=== PATIENT | male | born 1960 | race American Indian/Alaskan Native ===

== ENCOUNTER 2017-04-16 11:51 | Inpatient (IN) | payer OTHER ==
[2017-04-16 12:19] LABS: BASO % 0.9 % (0-2.0); EOS % 4.8 % (0-4.5); HEMOGLOBIN 13.3 GM/dL (11.7-16.9); LYMPH % 24.8 % (8-40); MCH 29.6 pg (25.7-33.7); MCHC 33.1 g/dl (32.0-35.9); MEAN CELL VOLUME 89.5 fl (80-96); MEAN PLT VOLUME 9.5 fl (7.5-11.1); NEUT % 62.5 % (42.8-82.8); PLATELET COUNT 178 K/MM3 (134-434); RBC 4.47 M/mm3 (4.00-5.60); RDW 13.4 % (11.9-15.9); WHITE BLOOD COUNT 4.6 K/mm3 (4.0-10.0)
--- NOTE | 2017-04-16 12:24 | PDOC ---
History of Present Illness - General Chief Complaint: Chest Pain Stated Complaint: Weakness/SOB Time Seen by Provider: 04/16/17 12:00 - History of Present Illness Initial Comments: 04/16/17 12:19 The patient is a 56 year old male with a history of HTN who presents for evaluation of chest pain. The patient reports a 2 day history of intermittent left-sided chest pain worse in the morning. He noted worsening 10/10 chest pain this morning that he describes as a burning and pressure sensation prompting his presentation to the ED for evaluation. He states that the pain does not radiate and he has not had similar symptoms in the past. He denies any exacerbating factors and notes that on presentation to the ED his pain has improved to a 2/10. He denies any fevers, chills, SOB, abdominal pain, nausea, vomiting, or changes with urination or bowel movements. Past History - Past Medical History Allergies/Adverse Reactions: Allergies Allergy/AdvReac Type Severity Reaction Status Date / Time No Known Allergies Allergy Verified 04/16/17 12:05 Home Medications: Ambulatory Orders Lisinopril [Prinivil] 10 mg PO DAILY 04/16/17 Ranitidine HCl [Zantac] 300 mg PO ONCE 04/16/17 - Suicide/Smoking/Psychosocial Hx Smoking History: Never smoked Review of Systems - Review of Systems Comments:: 04/16/17 12:23 Constitutional: No fevers, chills, fatigue, malaise HEENT: No Rhinorrhea, nasal congestion, visual changes Cardiovascular: Chest pain. No syncope, palpitations, lightheadedness Respiratory: No Cough, SOB, Hemoptysis, Gastrointestinal: No Abdominal pain, Nausea, Vomiting, Constipation, Diarrhea, Melena Genitourinary: No Dysuria, Frequency, Urgency, Hesitancy, Hematuria, Flank pain Musculoskeletal: No Myalgia, arthralgia Skin: No rashes, itching, bruising, pallor Neurologic: No Headache, Dizziness, Numbness, Weakness, or Tingling Psychiatric: No Hallucinations. No SI or HI *Physical Exam - Vital Signs Last Vital Signs Temp Pulse Resp BP Pulse Ox 98.0 F 78 18 137/82 100 04/16/17 11:54 04/16/17 11:54 04/16/17 11:54 04/16/17 11:54 04/16/17 11:54 - Physical Exam Comments: 04/16/17 12:23 General Appearance: Nourished. No Apparent Distress HEENT: EOMI, HEATH. No Pharyngeal Erythema, Tonsillar Exudate, Tonsillar Erythema Neck: No Cervical Lymphadenopathy Respiratory/Chest: Lungs Clear, Normal Breath Sounds. No Crackles, Rales, Rhonchi, Wheezing Cardiovascular: Regular Rhythm, Regular Rate. No Murmur, Gallops, Rubs Gastrointestinal/Abdominal: Normal Bowel Sounds, Soft. No Guarding, Rebound, Tenderness Musculoskeletal: No CVA Tenderness Extremity: Normal Capillary Refill Integumentary: Normal Color, Dry, Warm Neurologic: Fully Oriented, Alert, Normal Mood/Affect, Normal Response, Heart Score/ECG Review #1 ECG reviewed & interpreted by me at: 12:24 (T wave inversions in v1-v2) General ECG Interpretation: Sinus Rhythm, Normal Rate, Normal Intervals, No acute ischemic changes ED Treatment Course - LABORATORY CBC & Chemistry Diagram: 04/16/17 12:10 04/16/17 12:10 - RADIOLOGY Radiology Studies Ordered: Category Date Time Status CHEST PA & LAT [RAD] Stat Radiology 04/16/17 12:16 Ordered Medical Decision Making - Medical Decision Making 04/16/17 12:25 The patient is a 56 year old male with a history of HTN who presents for evaluation of chest pain. Differential includes but is not limited to: ACS, GERD, Pneumonia, Musculoskeletal, infectious, metabolic derangement. Given the patient's history of burning chest pressure worse after waking in the morning, it is likely his symptoms are due to GERD or gastritis. However it is reasonable to evaluate for ACS or Pneumonia although less likely at this time with improving symptoms. We will obtain a cbc, cmp, troponin, EKG and chest plain film to evaluate further. We will continue to monitor and reassess. 04/16/17 14:05 CBC, cmp, troponin are unremarkable. Chest plain film is unremarkable as read by our radiologist. EKG demonstrates some t-wave inversions in v1-v2. Given the patient's risk factors we will obtain a second troponin. We will treat the patient in the meantime with pepcid and maalox and continue to monitor and reassess. 04/16/17 17:56 Repeat troponin is elevated to 0.81. Repeat EKG is unchanged. We believe the patient requires admission for further work up. We discussed the case with the patient's primary Dr. See who accepted the patient for admission and requests cardiology consultation with Dr. Camara. 04/16/17 21:00 We discussed the case with Dr. Camara who has evaluated the patient. He requests ICU admission and that a nitroglycerin drip, heparin drip be started in addition to lopressor 50mg, lipitor 80mg and ASA. Repeat troponin and EKG will be done at 11pm. *DC/Admit/Observation/Transfer Diagnosis at time of Disposition: Elevated troponin - Discharge Dispostion Condition at time of disposition: Guarded Admit: Yes - Referrals - Patient Instructions - Post Discharge Activity
[2017-04-16 12:39] LABS: INR 1.04 (0.82-1.09); PROTHROMBIN TIME (PATIENT) 11.7 SEC (9.98-11.88)
[2017-04-16 12:42] LABS: ACTIVATED PTT 29.5 SECONDS (26.9-34.4)
[2017-04-16 12:43] LABS: ALK PHOS 70 U/L (45-117); ANION GAP 4 (8-16); BILIRUBIN,TOTAL 0.5 mg/dL (0.2-1.0); BLOOD UREA NITROGEN 11 mg/dL (7-18); CALCIUM 8.4 mg/dL (8.5-10.1); CHLORIDE 105 mmol/L (98-107); CO2 27 mmol/L (21-32); GLUCOSE,RANDOM 86 mg/dL (74-106); POTASSIUM 4.1 mmol/L (3.5-5.1); SGOT/AST 19 U/L (15-37); SGPT/ALT 30 U/L (12-78); SODIUM 136 mmol/L (136-145); TOT PROT 7.2 g/dl (6.4-8.2)
[2017-04-16 12:44] LABS: N-TERMINAL BNP 21.18 pg/ml (5-125)
[2017-04-16] MEDS ORDERED: MAG HYDROX/AL HYDROX/SIMETH 30 ML UNIT-DOSE CUP PO ONE (12:49)
[2017-04-16] MEDS ORDERED: FAMOTIDINE 20 MG/50 ML IVPB 20 MG/50 ML MG IVPB ONE (12:49)
[2017-04-16] MEDS ORDERED: MAG HYDROX/AL HYDROX/SIMETH 30 ML UNIT-DOSE CUP ONE (12:52)
--- NOTE | 2017-04-16 13:17 | PDOC ---
Attending Attestation - Resident Resident Name: Tim Hui - ED Attending Attestation I have performed the following: I have examined & evaluated the patient, The case was reviewed & discussed with the resident, I agree w/resident's findings & plan, Exceptions are as noted - HPI HPI: 04/16/17 13:12 The patient is a 56 year old male with a significant past medical history of hypertension who presents for complaint of intermittent chest pain for 2 days. He states the pain was 10/10 in severity this morning. He describes the pain as a burning, pressure sensation to the left side of his chest, worse in the morning. He states that the pain does not radiate. He denies any exacerbating factors and states his pain is 2/10 now. The pain does not radiate. It is not exertional, not pleuritic. The patient denies shortness of breath, headache and dizziness. The patient denies fever, chills, nausea, vomit, diarrhea and constipation. The patient denies dysuria, frequency, urgency and hematuria. Allergies: NKDA - Physicial Exam PE: 04/16/17 13:15 """GENERAL: Awake, alert, and fully oriented, in no acute distress HEAD: No signs of trauma EYES: PERRLA, EOMI, sclera anicteric, conjunctiva clear ENT: Auricles normal inspection, hearing grossly normal, nares patent, oropharynx clear without exudates. Moist mucosa NECK: Nontender, no stepoffs, Normal ROM, supple, no lymphadenopathy, JVD, or masses LUNGS: Breath sounds equal, clear to auscultation bilaterally. No wheezes, and no crackles HEART: Regular rate and rhythm, normal S1 and S2, no murmurs, rubs or gallops ABDOMEN: Soft, nontender, normoactive bowel sounds. No guarding, no rebound. No masses EXTREMITIES: Normal range of motion, no edema. No clubbing or cyanosis. No cords, erythema, or tenderness NEUROLOGICAL: Cranial nerves II through XII intact. 5/5 strength and sensation in all extremities, Normal speech, normal gait SKIN: Warm, Dry, normal turgor, no rashes or lesions noted. """ - Medical Decision Making 04/16/17 13:18 56 M with atypical chest pain. Pt with TWI in V1-V2 on EKG, concerning for ACS, but we have no prior EKGs to compare. Pt now with almost complete resolution of chest pain without intervention. - Labs, serial trops - CXR 04/16/17 16:31 CBC,CMP WBC 4.6 K/mm3 (4.0-10.0) 04/16/17 12:10 RBC 4.47 M/mm3 (4.00-5.60) 04/16/17 12:10 Hgb 13.3 GM/dL (11.7-16.9) 04/16/17 12:10 Hct 40.0 % (35.4-49) 04/16/17 12:10 MCV 89.5 fl (80-96) 04/16/17 12:10 MCH 29.6 pg (25.7-33.7) 04/16/17 12:10 MCHC 33.1 g/dl (32.0-35.9) 04/16/17 12:10 RDW 13.4 % (11.9-15.9) 04/16/17 12:10 Plt Count 178 K/MM3 (134-434) 04/16/17 12:10 MPV 9.5 fl (7.5-11.1) 04/16/17 12:10 Neutrophils % 62.5 % (42.8-82.8) 04/16/17 12:10 Lymphocytes % 24.8 % (8-40) 04/16/17 12:10 Monocytes % 7.0 % (3.8-10.2) 04/16/17 12:10 Eosinophils % 4.8 % (0-4.5) H 04/16/17 12:10 Basophils % 0.9 % (0-2.0) 04/16/17 12:10 Sodium 136 mmol/L (136-145) 04/16/17 12:10 Potassium 4.1 mmol/L (3.5-5.1) 04/16/17 12:10 Chloride 105 mmol/L (98-107) 04/16/17 12:10 Carbon Dioxide 27 mmol/L (21-32) 04/16/17 12:10 Anion Gap 4 (8-16) L 04/16/17 12:10 BUN 11 mg/dL (7-18) 04/16/17 12:10 Creatinine 1.0 mg/dL (0.7-1.3) 04/16/17 12:10 Creat Clearance w eGFR > 60 (>60) 04/16/17 12:10 Random Glucose 86 mg/dL (74-106) 04/16/17 12:10 Calcium 8.4 mg/dL (8.5-10.1) L 04/16/17 12:10 Total Bilirubin 0.5 mg/dL (0.2-1.0) 04/16/17 12:10 AST 19 U/L (15-37) 04/16/17 12:10 ALT 30 U/L (12-78) 04/16/17 12:10 Alkaline Phosphatase 70 U/L (45-117) 04/16/17 12:10 Creatine Kinase 90 IU/L (39-308) 04/16/17 12:10 Troponin I 0.04 ng/ml (0.00-0.05) 04/16/17 12:10 B-Natriuretic Peptide 21.18 pg/ml (5-125) 04/16/17 12:10 Total Protein 7.2 g/dl (6.4-8.2) 04/16/17 12:10 Albumin 4.0 g/dl (3.4-5.0) 04/16/17 12:10 First trop negative. CXR clear. Dispo pending 2nd troponin. Pt signed out to oncoming attending at 5PM. Heart Score/ECG Review - History History: Slightly suspicious - Electrocardiogram EKG: Non specific repolarization disturbance - Age Age: 45-65 - Risk Factors Risk Factors Heart Score: Yes Hx Hypertension Based on the list above the patient has:: 1-2 risk factors - Troponin Troponin: </= normal limit - Score Heart Score - Total: 3 - ECG Impressions Comment:: 04/16/17 13:17 NSR, no FREDDIE/STDs, TWI in V1-V2, axis wnl, intervals wnl
[2017-04-16] MEDS ORDERED: ASPIRIN 325 MG TABLET PO ONE (17:55)
[2017-04-16] MEDS ORDERED: ASPIRIN 325 MG TABLET ONE (18:13)
--- NOTE | 2017-04-16 18:13 | PDOC ---
*Physical Exam - Vital Signs Last Vital Signs Temp Pulse Resp BP Pulse Ox 98.0 F 66 12 138/73 100 04/16/17 11:54 04/16/17 17:55 04/16/17 17:55 04/16/17 17:55 04/16/17 17:55 ED Treatment Course - LABORATORY CBC & Chemistry Diagram: 04/16/17 12:10 04/16/17 12:10 - ADDITIONAL ORDERS Additional order review: Laboratory Results 04/16/17 04/16/17 04/16/17 16:30 12:10 12:10 PT with INR 11.70 INR 1.04 PTT (Actin FS) 29.5 Sodium 136 Potassium 4.1 Chloride 105 Carbon Dioxide 27 Anion Gap 4 L BUN 11 Creatinine 1.0 Creat Clearance w eGFR > 60 Random Glucose 86 Calcium 8.4 L Total Bilirubin 0.5 AST 19 ALT 30 Alkaline Phosphatase 70 Creatine Kinase 95 Troponin I 0.81 H* D B-Natriuretic Peptide Total Protein 7.2 Albumin 4.0 04/16/17 12:10 PT with INR INR PTT (Actin FS) Sodium Potassium Chloride Carbon Dioxide Anion Gap BUN Creatinine Creat Clearance w eGFR Random Glucose Calcium Total Bilirubin AST ALT Alkaline Phosphatase Creatine Kinase 90 Troponin I 0.04 B-Natriuretic Peptide 21.18 Total Protein Albumin 04/16/17 12:10 RBC 4.47 MCV 89.5 MCHC 33.1 RDW 13.4 MPV 9.5 Neutrophils % 62.5 Lymphocytes % 24.8 Monocytes % 7.0 Eosinophils % 4.8 H Basophils % 0.9 - Medications Given in the ED: ED Medications Discontinued Medications Generic Name Dose Route Start Last Admin Trade Name Freq PRN Reason Stop Dose Admin Al Hydroxide/Mg Hydroxide 30 ml 04/16/17 12:49 04/16/17 12:56 Mylanta Oral Suspension - PO 04/16/17 12:50 30 ml ONCE ONE Administration Famotidine/Sodium Chloride 20 mg in 50 mls @ 100 mls/hr 04/16/17 12:49 14:38 Pepcid 20 Mg Premixed Ivpb - IVPB 04/16/17 13:18 100 mls/hr ONCE ONE Administration Medical Decision Making - Medical Decision Making 04/16/17 18:11 Second troponin was POSITIVE at 0.81 up from 0.04. pt is symptomatic with chest discomfort ,repeat ekg was unchanged from previous -Dr Miguel See contacted and requested Dr Florentin Tim for cardiology -pt admitted to in house TELEMETRY *DC/Admit/Observation/Transfer Diagnosis at time of Disposition: Elevated troponin - Discharge Dispostion Condition at time of disposition: Guarded - Referrals - Patient Instructions - Post Discharge Activity
[2017-04-16] MEDS ORDERED: HEPARIN NA (PORCINE) 5,000 UNITS/ML 1ML VIAL IVPUSH PRN ×2 (18:37)
[2017-04-16] MEDS ORDERED: METOPROLOL TARTRATE 25 MG TABLET (FP) PO ONE ×2 (18:37→20:59)
[2017-04-16] MEDS ORDERED: NITROGLYCERIN SUBLINGUAL 1/200 0.3 MG BTL SL ONE (18:39)
[2017-04-16] MEDS ORDERED: HEPARIN - 25,000 UNIT in SODIUM CHLORIDE 495 ML IV SCH (18:45)
[2017-04-16] MEDS ORDERED: NITROGLYCERIN SUBLINGUAL 1/150 0.4 MG TAB ONE (18:52)
[2017-04-16] MEDS ORDERED: METOPROLOL TARTRATE 25 MG TABLET (FP) ONE ×2 (18:53→21:02)
[2017-04-16] MEDS ORDERED: HEPARIN INFUSION - 25,000 UNITS/500 ML INFUS.BAG IVPB ONE (18:58)
[2017-04-16] MEDS ORDERED: HEPARIN NA (PORCINE) 5,000 UNITS/ML 1ML VIAL ONE (18:58)
[2017-04-16] MEDS ORDERED: NITROGLYCERIN 25MG/D5W 250ML 25 MG/250 ML ML IVPB SCH (21:00)
[2017-04-16] MEDS ORDERED: ATORVASTATIN CA 80 MG TABLET (FP) PO ONE (21:00)
[2017-04-16] MEDS ORDERED: NITROGLYCERIN 25MG/D5W 250ML 25 MG/250 ML ML IVPB ONE (21:02)
[2017-04-16] MEDS ORDERED: ATORVASTATIN CA 80 MG TABLET (FP) ONE (21:02)
--- NOTE | 2017-04-16 21:34 | CONS ---
CARDIOLOGY CONSULTATION DATE OF CONSULTATION: 04/16/2017 REQUESTING PHYSICIAN: Shayy See MD LOCATION: Emergency room. HISTORY OF PRESENT ILLNESS: The patient is a 56-year-old gentleman who has history of hypertension, was brought to the emergency room with left-sided chest pain. On questioning, he states that his symptoms started approximately 3 months ago, and initially, the symptoms were mild and infrequent and have been progressively becoming more pronounced. He has been waking up in the middle of the night with chest pain that would be severe, nonradiating, nonpleuritic and would last between 10 to 15 minutes. Today, he developed similar symptoms on waking up in the morning, and the pain was severe and persistent, and he was brought to the emergency room. There is no history of diaphoresis, nausea, or vomiting. No history of shortness of breath. No history of lightheadedness, dizziness, presyncope, or syncope. Denies having pain on exertion. There is no history of exertional dyspnea, paroxysmal nocturnal dyspnea, or orthopnea. No history of diabetes mellitus. He denies having rheumatic fever as a child. SURGICAL HISTORY: Status post left herniorrhaphy, status post removal of 2 cysts from the left submandibular area and under the chin. SOCIAL HISTORY: He is , has children who are healthy. Smoked from the age of 22 to last year, 1 pack of cigarettes per day. Used to drink but has curtailed his intake. No history of drug use. FAMILY HISTORY: Father is ; cause is unknown. Mother is alive. Has 5 brothers who are apparently healthy. ALLERGIES: None reported. MEDICATION: Patient states that he was on amlodipine 10 mg p.o. daily. REVIEW OF SYSTEMS: Constitutional: No history of chills, fever, or night sweats reported. No history of unintentional weight loss. HEENT: No history of headaches, diplopia, or blurred vision reported. No history of epistaxis, hoarseness, tinnitus, or deafness. Cardiovascular: See history of present illness. Respiratory: No history of cough, expectoration, or hemoptysis. Gastrointestinal: No history of nausea, vomiting, melena, or hematemesis. No history of abdominal pain or discomfort. Denies any change in bowel habits. Neurological: No history of lightheadedness, dizziness, presyncope, or syncope. No history of focal weakness. No history of seizures. Endocrine: No history of polyuria or polydipsia. No history of intolerance to cold or warm weather. Genitourinary: No history of dysuria, frequency, or hematuria. Musculoskeletal: Denies having any myalgias or arthralgias. Hematological: No history of anemia, ecchymosis, or bleeding. PHYSICAL EXAMINATION: General: A 56-year-old gentleman who was in no acute distress. No pallor, cyanosis, clubbing, or jaundice. Vital Signs: Weight was not recorded. Blood pressure 138/83 mmHg. Pulse 75 beats per minute and regular. Respirations 18 per minute. O2 saturation 100% on room air. Neck: Supple. No jugular venous distention. Carotids were 2+. Upstrokes were normal. No bruits were heard, and no thyromegaly was present. Heart: PMI was in the fifth intercostal space. No heaves or thrills. S1 and S2 were normal. No murmur was heard. There was an S4 gallop at the apex. Lungs: Clear on auscultation. Abdomen: Soft, slightly protuberant, and nontender. No hepatosplenomegaly or palpable masses were felt. Bowel sounds were hyperactive. No bruits were heard. Extremities: No calf tenderness or dependent edema. Pulses were equal. ELECTROCARDIOGRAM: At 12:02 p.m., sinus rhythm, right axis deviation, upward coving of ST segments in leads II, III, aVF, may be related to early repolarization. Possibility of current of injury cannot be excluded. T waves were inverted in V2. Repeat ECG at 1735, sinus rhythm. Compared to ECG of 12:02, rhythm as above; T waves are deeply inverted in aVL. No other major changes were seen. LABORATORY DATA: CBC: WBC count 4600, hemoglobin 13.3 g, platelet count 178,000; normal differential; eosinophils were slightly elevated at 4.8%. Chemistry: Sodium 136, potassium 4.1, chloride 105, CO2 of 27 mmol/L. Random glucose 86 mg/dL. Total CK 90 and 95. Troponin on admission 0.04. Followup troponin 0.81. BNP was 21.81. X-RAY CHEST: Impression: No acute chest pathology. IMPRESSION: 1. Clinical presentation is consistent with coronary artery disease, acute coronary syndrome. 2. Hypertension, currently normotensive. RECOMMENDATIONS: 1. Concur with use of IV heparin as per protocol. 2. IV nitroglycerin and titrate for chest pain. 3. Oral beta-blockers, example Toprol-XL 50 mg p.o. daily. 4. Lipitor 80 mg p.o. daily. 5. If chest pains were to recur, consider adding clopidogrel 75 mg p.o. daily. 6. Followup CBC and comprehensive metabolic profile. 7. Lipid profile. PROGNOSIS: Guarded. Thank you for your referral. Yours sincerely, MARISABEL BAH M.D. [id number]
[2017-04-16 23:08] VITALS: BMI 21.2
--- NOTE | 2017-04-16 23:09 | EKG ---
Test Reason : Blood Pressure : / mmHG Vent. Rate : 078 BPM Atrial Rate : 078 BPM P-R Int : 158 ms QRS Dur : 108 ms QT Int : 368 ms P-R-T Axes : 027 087 069 degrees QTc Int : 419 ms NORMAL SINUS RHYTHM NORMAL ECG NO PREVIOUS ECGS AVAILABLE Confirmed by RYNE JUAN MD ([id number]) on 04/16/2017 11:08:44 PM Referred By: Confirmed By:RYNE JUAN MD
--- NOTE | 2017-04-17 00:34 | CONSULT ---
Consult Consult Specialty:: PULM/CCM Referred by:: Dr. Shayy See Reason for Consultation:: NSTEMI - History of Present Illness Chief Complaint: CP History of Present Illness: OF Note Pt speaks Connie Pt's ICU Nurse Darron is fluent in Connie Pt Interviewed thoroughly through Pt's ICU Nurse Mr. Garcia is a 56 y/o man w/ HTN, > 10Pck-Yr smoker, newly arrived from [place] X 5 mos in the past, pt presents to ED on 04/16 c/o CP X 2 Days. Pt states the pain was 10/10 in severity this AM. Pt states he has been experiencing this pain for several months. Pt describes the pain as a burning, pressure sensation to the left side of his chest, worse in the AM. He states that the pain does not radiate. He denies any exacerbating factors and states his pain is 1/10 on exam. Pt denies any SOB, DUGAN, dizzy, fever, chills, N/V/D or constipation. Pt denies any dysuria, frequency, urgency or hematuria. In ED no change on EKG but + Troponin: 0.04 --> 0.81. pt is symptomatic with chest discomfort ,repeat ekg was unchanged from previous. Pt admitted to the ICU O/N for NTG gtt & Heparin gtt. - History Source History Provided By: Patient, Medical Record Limitations to Obtaining History: Language Barrier - Past Medical History NONPROFIT MANAGER: No: CVA, Dementia Cardio/Vascular: Yes: HTN. No: AFIB, CAD, [place] Pulmonary: No: Asthma, Bronchitis, COPD Gastrointestinal: No: GI Bleed Hepatobiliary: No: Cirrhosis Renal/: No: Renal Failure, Renal Inusuff, BPH Heme/Onc: No: Anemia Infectious Disease: No: AIDS Psych: No: Addictions Rheumatology: No: Gout Endocrine: No: Diabetes Mellitus - Past Surgical History Past Surgical History: Yes: Cystectomy, Hernia Repair - Alcohol/Substance Use Hx Alcohol Use: Yes (social with friends) - Smoking History Smoking history: Former smoker Have you smoked in the past 12 months: No If you are a former smoker, when did you quit?: 2017 - Social History ADL: Independent Place of : Other ([place]) History of Recent Travel: Yes Home Medications - Allergies Allergies/Adverse Reactions: Allergies Allergy/AdvReac Type Severity Reaction Status Date / Time No Known Allergies Allergy Verified 04/16/17 12:05 - Home Medications Home Medications: Ambulatory Orders Lisinopril [Prinivil] 10 mg PO DAILY 04/16/17 Ranitidine HCl [Zantac] 300 mg PO ONCE 04/16/17 Family Disease History - Family Disease History Family History: Unable to Obtain (LANGUAGE) Review of Systems - Review of Systems Constitutional: reports: No Symptoms Eyes: reports: No Symptoms HENT: reports: No Symptoms Neck: reports: No Symptoms Cardiovascular: reports: Chest Pain Respiratory: reports: No Symptoms Gastrointestinal: reports: No Symptoms Genitourinary: reports: No Symptoms Breasts: reports: No Symptoms Reported Musculoskeletal: reports: No Symptoms Integumentary: reports: No Symptoms Neurological: reports: No Symptoms Endocrine: reports: No Symptoms Hematology/Lymphatic: reports: No Symptoms Psychiatric: reports: No Symptoms Pain Intensity: 1 Physical Exam Vital Signs: Vital Signs Temperature 97.2 F L 04/16/17 22:30 Pulse Rate 65 04/17/17 00:00 Respiratory Rate 17 04/17/17 00:00 Blood Pressure 130/74 04/17/17 00:00 O2 Sat by Pulse Oximetry (%) 100 04/16/17 22:30 Intake & Output 04/14/17 04/15/17 04/16/17 04/17/17 23:59 23:59 23:59 23:59 Weight 65.363 kg Constitutional: Yes: No Distress, Calm, Thin Eyes: Yes: WNL, Conjunctiva Clear, EOM Intact HENT: Yes: WNL, Atraumatic, Normocephalic Neck: Yes: WNL, Supple, Trachea Midline Cardiovascular: Yes: WNL, Regular Rate and Rhythm Respiratory: Yes: WNL, Regular, CTA Bilaterally Gastrointestinal: Yes: WNL, Normal Bowel Sounds, Soft ...Rectal Exam: Yes: Deferred Renal/: Yes: WNL Breast(s): Yes: WNL Musculoskeletal: Yes: WNL Extremities: Yes: WNL Edema: No Peripheral Pulses WNL: Yes Integumentary: Yes: WNL Neurological: Yes: WNL, Alert, Oriented ...Motor Strength: WNL Psychiatric: Yes: WNL, Alert, Oriented Labs: CBC, BMP 04/16/17 12:10 04/16/17 12:10 Troponin, BNP 04/16/17 04/16/17 04/16/17 12:10 16:30 23:20 Troponin I 0.04 0.81 H* D 0.91 H* B-Natriuretic Peptide 21.18 INR, PTT INR 1.04 (0.82-1.09) 04/16/17 12:10 Imaging - Results X-ray: Image Reviewed (CXR 04/16: A single view reveals clear lungs, normal mediastinum and sharp angles. The bones and soft tissues are intact. Impression: No acute chest pathology.) EKG: Image Reviewed (RSR in the 60's w/o ect, normal axis, T-wave inversions in V1-V2, QTc = 405ms, no acute process (My Read).) Problem List - Problems (1) Elevated troponin Code(s): R74.8 - ABNORMAL LEVELS OF OTHER SERUM ENZYMES Assessment/Plan ASSESS: This is a 56 y/o man w/ HTN, > 10Pck-Yr smoker, who presents now w/ NSTEMI. PLAN: -Supp FiO2 for an SpO2 > 92% -Nebs -IS -Serial Trops -Serial CK -Serial CK-MB -Serial EKG -Check BNP -NTG gtt to supress CP -Heparin gtt for full therapeutic -Statin (lipitor 80) -BB ( Lopressor 50mg) -ASA -TTE -CARDS -Stict I'S & O's -Trend BUN/Cr -replete e-lytes prn -Cardiac Diet -SCDs -PPI (Possible GERD) -Transfer to Cardiac Map Maker immediately DGL, ACNP-[facility] ICU PULM/CCM [id number]
--- NOTE | 2017-04-17 08:04 | PN ---
Progress Note, Physician History of Present Illness: Connie speaking. Nurse Darron garcia. No chest pain. No SOB. Feels great - Current Medication List Current Medications: Active Medications Aspirin (Asa -) 81 mg PO DAILY YVAN Atorvastatin Calcium (Lipitor -) 80 mg PO HS YVAN Heparin Sodium (Porcine) (Heparin -) 1,000 unit IVPUSH PRN PRN PRN Reason: Heparin Heparin Sodium (Porcine) (Heparin -) 5,000 unit IVPUSH PRN PRN PRN Reason: Heparin Last Admin: 04/16/17 19:00 Dose: 5,000 unit Heparin Sodium (Porcine) 25, (000 unit/ Sodium Chloride) 500 mls @ 16 mls/hr IV TITR YVAN; 800 UNIT/HR PRN Reason: Protocol Last Titration: 04/17/17 01:30 Dose: 650 unit/hr, 13 mls/hr Nitroglycerin/Dextrose (Nitroglycerin 25mg/D5w 250ml) 25 mg in 250 mls @ 6 mls/ hr IVPB TITR YVAN PRN Reason: 10 MCG/MIN Last Titration: 04/16/17 21:09 Dose: 5 mcg/min, 3 mls/hr - Objective Vital Signs: Vital Signs Temperature 97.8 F 04/17/17 06:00 Pulse Rate 68 04/17/17 06:00 Respiratory Rate 14 04/17/17 06:00 Blood Pressure 126/74 04/17/17 06:00 O2 Sat by Pulse Oximetry (%) 100 04/16/17 22:30 Additional Findings/Remarks: GEN: AAOx3, NAD, Lying comfortably HEENT: PERRLA, EOMi CV: S1, S2, RRR, no chest tenderness LUNG: CTABL ABD: Soft, NT, ND, normoactive BS MSK: No edema, no erythema NEURO: CN 2-12 intact Labs: INR, PTT INR 1.04 (0.82-1.09) 04/16/17 12:10 Assessment/Plan 56yo M with a PMHx of HTN, admitted for chest pain and r/o ACS. In the ER was found to have elevated tropns and TWI in anterior leads. Started on nitro drip in ICU # Cardio: ACS r/o, HLD -- No chest pain. Serial troponins rising, continue to trend. EKG shows no new changes. Cont Nitro ggt for chest pain. Continue Hep ggt -- Metoprolol 25mg BID + Atorvastatin 80 QD -- Pt needs cardiac cath transfer, will discuss w/ social work about insurance. # FEN/PPx -- No IVF, NPO -- Hep gtt, no GI ppx # Dispo -- Stable to be transferred to tele -- Dr Christensen working on transfer to cath Marisa Roque MD - pGY1 ICU Resident
[2017-04-17 08:05] LABS: HEMATOCRIT 38.3 % (35.4-49); HEMOGLOBIN 12.6 GM/dL (11.7-16.9); MCH 29.6 pg (25.7-33.7); MCHC 32.9 g/dl (32.0-35.9); MEAN PLT VOLUME 10.2 fl (7.5-11.1); PLATELET COUNT 170 K/MM3 (134-434); RBC 4.25 M/mm3 (4.00-5.60); RDW 13.5 % (11.9-15.9); WHITE BLOOD COUNT 6.2 K/mm3 (4.0-10.0)
[2017-04-17 08:11] LABS: ALBUMIN 3.6 g/dl (3.4-5.0); ALK PHOS 65 U/L (45-117); ANION GAP 5 (8-16); BILIRUBIN,TOTAL 0.5 mg/dL (0.2-1.0); BLOOD UREA NITROGEN 19 mg/dL (7-18); CALCIUM 7.9 mg/dL (8.5-10.1); CHLORIDE 111 mmol/L (98-107); CO2 24 mmol/L (21-32); CREATININE 0.9 mg/dL (0.7-1.3); GLUCOSE,RANDOM 89 mg/dL (74-106); MAGNESIUM 2.1 mg/dL (1.8-2.4); PHOSPHOROUS 4.3 mg/dL (2.5-4.9); SGOT/AST 18 U/L (15-37); SGPT/ALT 32 U/L (12-78); SODIUM 140 mmol/L (136-145); TOT PROT 6.4 g/dl (6.4-8.2)
[2017-04-17] MEDS ORDERED: ASPIRIN 81 MG CHEWABLE TABLETS PO SCH (10:00)
[2017-04-17 10:06] LABS: CHOLESTEROL 118 mg/dL (50-200); HDL CHOLESTEROL 37 mg/dL (40-60); LDL CHOLESTEROL (ONLY SJRH) 79 mg/dL (5-100); TRIGLYCERIDES 51 mg/dL (35-160)
--- NOTE | 2017-04-17 10:24 | HP ---
DATE OF ADMISSION: 04/16/2017 HISTORY OF PRESENT ILLNESS: This is a 56-year-old male known to have hypertension, came to the emergency room yesterday with complaints of a few days of chest pain, and for the last 2 days, the chest pain was worse. Yesterday morning, the chest pain got very bad; so, he came to the emergency room. Denies any shortness of breath. After coming to the emergency room, he was evaluated by the digital circuit designer and admitted to ICU on IV nitroglycerin and IV heparin. At this point this morning, he does not have any chest pain. PHYSICAL EXAMINATION: Vital Signs: His blood pressure is 120/80, pulse 70, respirations 20, temperature 97. HEENT: Unremarkable. Neck: Supple. No JVD. Lungs: Clear. Heart: S1, S2 normal. No S3 or S4. Abdomen: Soft. Legs: No edema. Neurological: Examination grossly normal. LABORATORY REPORTS: WBC 6.2, hemoglobin 12.6, platelets 170. Chemistry: Electrolytes are normal. Troponin came back positive 0.81, and then, third one is 0.91. Lipid profile is not done. EKG: ST elevation, questionable ST changes. No previous EKG to compare. IMPRESSION: 1. Acute myocardial infarction. 2. Hypertension. PLAN: Continue ICU care, cardiology followup, may need to transfer to acute facility. Kris [id number]
--- NOTE | 2017-04-17 10:33 | PN ---
Progress Note (short form) - Note Progress Note: 56 year old male admitted with left anterior chest pains associated with elevated troponins and EKG changes. Currently is pain free, no SOB, nausea, vomiting or diaphoresis. H/o of hypertension and hypercholesterolemia, cigarette smoking.Troponins are trending down. Active Medications Generic Name Dose Route Start Last Admin Trade Name Freq PRN Reason Stop Dose Admin Aspirin 81 mg 04/17/17 10:00 04/17/17 10:08 Asa - PO 81 mg DAILY YVAN Administration Atorvastatin Calcium 80 mg 04/17/17 22:00 Lipitor - PO HS YVAN Heparin Sodium (Porcine) 1,000 unit 04/16/17 18:37 Heparin - IVPUSH PRN PRN Heparin Heparin Sodium (Porcine) 5,000 unit 04/16/17 18:37 04/16/17 19:00 Heparin - IVPUSH 5,000 unit PRN PRN Administration Heparin Heparin Sodium (Porcine) 25, 500 mls @ 16 mls/hr 04/16/17 18:45 04/17/17 10: 05 000 unit/ Sodium Chloride IV 650 unit/hr TITR YVAN 13 mls/hr Protocol Titration 800 UNIT/HR Nitroglycerin/Dextrose 25 mg in 250 mls @ 6 mls/hr 04/16/17 21:00 04/16/17 21 :09 Nitroglycerin 25mg/D5w 250ml IVPB 5 mcg/min TITR YVAN 3 mls/hr 10 MCG/MIN Titration 56 year old male in no acute distress, no pallor, cyanosis, clubbing or jaundice. Last Vital Signs Temp Pulse Resp BP Pulse Ox 97.8 F 57 L 20 104/70 100 04/17/17 06:00 04/17/17 08:00 04/17/17 08:00 04/17/17 08:00 04/16/17 22:30 NECK: Supple, no JVD, carotids 2+, no bruits , no thyromegaly. HEART: PMI i the 5th ICS, no heaves or thrills. No murmur or gallops heard. LUNGS: Clear on auscultation. ABDOMEN: Soft, nontender, no organomegaly or palpable masses felt. EXTREMITIES: No dependent edema or calf tenderness. Troponin, BNP 04/16/17 04/16/17 04/16/17 12:10 16:30 23:20 Troponin I 0.04 0.81 H* D 0.91 H* B-Natriuretic Peptide 21.18 04/17/17 05:10 Troponin I 0.59 H D B-Natriuretic Peptide CBC, BMP 04/17/17 05:10 04/17/17 05:10 EKG pending. IMPRESSION: 1. CAD, Acute coronary syndrome. 2. Hypertension. 3. Hypercholesterolemia. RECOMMENDATIONS: 1. Case discussed with the residents. 2.Spoke to the patient, daughter(over the phone) regarding transfer to a medical center for cardiac cath. Prognosis: Guarded.
[2017-04-17] MEDS ORDERED: METOPROLOL TARTRATE 25 MG TABLET (FP) PO SCH (11:30)
--- NOTE | 2017-04-17 14:08 | EKG ---
Test Reason : Blood Pressure : / mmHG Vent. Rate : 063 BPM Atrial Rate : 063 BPM P-R Int : 146 ms QRS Dur : 108 ms QT Int : 402 ms P-R-T Axes : 074 084 073 degrees QTc Int : 411 ms NORMAL SINUS RHYTHM NORMAL ECG WHEN COMPARED WITH ECG OF 16-APR-2017 17:35, NO SIGNIFICANT CHANGE WAS FOUND Confirmed by MD Acosta Edward ([id number]) on 04/17/2017 2:08:38 PM Referred By: IRMA REDDY Confirmed By:Azam Acosta MD
--- NOTE | 2017-04-17 16:45 | EKG ---
Test Reason : Blood Pressure : / mmHG Vent. Rate : 067 BPM Atrial Rate : 067 BPM P-R Int : 146 ms QRS Dur : 104 ms QT Int : 384 ms P-R-T Axes : 076 085 076 degrees QTc Int : 405 ms NORMAL SINUS RHYTHM POSSIBLE LEFT ATRIAL ENLARGEMENT BORDERLINE ECG WHEN COMPARED WITH ECG OF 16-APR-2017 12:02, NO SIGNIFICANT CHANGE WAS FOUND Confirmed by MD Karla, Azam ([id number]) on 04/17/2017 4:45:20 PM Referred By: Confirmed By:Azam Acosta MD
[2017-04-17 18:18] VITALS: BP 149/74; PULSE 78; TEMP 97.9
[2017-04-17] MEDS ORDERED: ATORVASTATIN CA 80 MG TABLET (FP) PO SCH (22:00)
== END 2017-04-17 19:05 | disposition short-term general hospital (02) | DRG 190 ==
LOC: JER 11:51 → JERBED 17:58 → JICU 22:14
PROVIDERS: ADMIT Internal Medicine; ATTEND Internal Medicine
DX: I21.4 Non-ST elevation (NSTEMI) myocardial infarction (principal); I25.10 Atherosclerotic heart disease of native coronary artery without angina pectoris; I24.9 Acute ischemic heart disease, unspecified; I10 Essential (primary) hypertension; E78.00 Pure hypercholesterolemia, unspecified; Z87.891 Personal history of nicotine dependence; I34.0 Nonrheumatic mitral (valve) insufficiency; I07.1 Rheumatic tricuspid insufficiency
CPT/HCPCS: 36415; 71045-TC-FY; 80053; 80061; 82550; 83721; 83735; 83880; 84100; 84484; 85025; 85027; 85610; 85730; 93005; 93010; 93306-TC; 99285-25; J1644